=== PATIENT | male | born 1990 | race Caucasian/White ===

== ENCOUNTER 2021-04-02 12:25 | Inpatient (IN) | payer OTHER ==
[2021-04-02 16:12] VITALS: BMI 20.5
[2021-04-02] MEDS ORDERED: ACETAMINOPHEN 325 MG TABLET (FP) PO PRN ×2 (16:28)
[2021-04-02] MEDS ORDERED: IBUPROFEN 400 MG TABLET (FP) PO PRN (16:28)
[2021-04-02] MEDS ORDERED: diazePAM 5 MG TABLET PO PRN (16:28)
[2021-04-02] MEDS ORDERED: MAGNESIUM HYDROX 2400MG/30ML ORAL SUSPENSION 30 ML CUP PO PRN (16:28)
[2021-04-02] MEDS ORDERED: MAGNESIUM CITRATE 300 ML BOTTLE PO PRN (16:28)
[2021-04-02] MEDS ORDERED: ONDANSETRON *ODT* 4 MG TABLET SL PRN (16:28)
[2021-04-02] MEDS ORDERED: NICOTINE 10 MG CARTRIDGE (INHALER) IH PRN (16:28)
[2021-04-02] MEDS ORDERED: MENTHOL/PHENOL 1 EACH UD MM PRN (16:28)
[2021-04-02] MEDS ORDERED: MAG HYDROX/AL HYDROX/SIMETH 30 ML UNIT-DOSE CUP PO PRN (16:28)
[2021-04-02] MEDS ORDERED: diazePAM 5 MG TABLET PO SCH (17:00)
[2021-04-02] MEDS ORDERED: BISMUTH SUBSALICYLATE 524 MG/30 ML PO ONE (17:18)
[2021-04-02] MEDS: LORazepam 2 MG TABLET PO SCH ×2 (18:08→23:04)
[2021-04-02] MEDS: hydrOXYzine PAMOATE 25 MG CAPSULE (FP) PO SCH ×2 (18:09→23:05)
[2021-04-02] MEDS: MELATONIN 5 MG TABLETS PO SCH (23:04)
[2021-04-02] MEDS: GABAPENTIN 300 MG CAPSULE PO SCH (23:05)
[2021-04-02] MEDS: THIAMINE HCL 100 MG TABLET (FP) PO SCH (23:05)
[2021-04-03] MEDS: GABAPENTIN 300 MG CAPSULE PO SCH ×3 (05:23→22:06)
[2021-04-03] MEDS: hydrOXYzine PAMOATE 25 MG CAPSULE (FP) PO SCH ×5 (05:23→22:05)
[2021-04-03] MEDS: LORazepam 2 MG TABLET PO SCH ×4 (05:23→22:06)
[2021-04-03] MEDS ORDERED: methaDONE HCL 10 MG TABLET PO ONE (09:13)
[2021-04-03] MEDS ORDERED: methaDONE 80 MG, methaDONE 20 MG PO ONE (09:45)
[2021-04-03] MEDS ORDERED: methaDONE HCL 40 MG DISPERSABLE TABLET ONE (10:02)
[2021-04-03] MEDS ORDERED: methaDONE HCL 10 MG TABLET ONE (10:02)
[2021-04-03] MEDS: PRENATAL VITAMINS W/ FOLIC ACID TABLET (FP) PO SCH (10:10)
[2021-04-03 11:07] LABS: ALBUMIN 2.9 g/dl (3.4-5.0); BLOOD UREA NITROGEN 6.8 mg/dL (7-18); CALCIUM 8.6 mg/dL (8.5-10.1)
[2021-04-03 11:10] LABS: CREATININE 0.9 mg/dL (0.55-1.3)
[2021-04-03 11:11] LABS: BILIRUBIN,TOTAL 0.5 mg/dL (0.2-1)
[2021-04-03 11:12] LABS: HEMATOCRIT 40.1 % (35.4-49); MCH 31.7 pg (25.7-33.7); MEAN CELL VOLUME 90.5 fl (80-96); MEAN PLT VOLUME 10.6 fl (7.5-11.1); PLATELET COUNT 166 10^3/uL (134-434); RBC 4.42 M/mm3 (4.00-5.60); RDW 13.3 % (11.9-15.9); TOT PROT 6.6 g/dl (6.4-8.2); WHITE BLOOD COUNT 8.4 K/mm3 (4.0-10.0)
[2021-04-03] MEDS: LORazepam 1 MG TABLET PO PRN (12:51)
[2021-04-03] MEDS: BISMUTH SUBSALICYLATE 524 MG/30 ML PO PRN ×3 (14:09→22:10)
[2021-04-03] MEDS ORDERED: POTASSIUM CHLORIDE ORAL LIQUID 20 MEQ/15 ML PO ONE (14:28)
[2021-04-03 17:03] LABS: URINE APPEARANCE CLEAR; URINE BILIRUBIN NEGATIVE (NEGATIVE); URINE COLOR YELLOW; URINE GLUCOSE (UA) NEGATIVE (NEGATIVE); URINE KETONE NEGATIVE (NEGATIVE); URINE LEUK ESTERASE NEGATIVE (NEGATIVE); URINE NITRITE NEGATIVE (NEGATIVE); URINE PROTEIN NEGATIVE (NEGATIVE)
[2021-04-03] MEDS: METHOCARBAMOL 500 MG TABLET PO PRN (18:03)
[2021-04-03] MEDS: POTASSIUM CHLORIDE ORAL LIQUID 20 MEQ/15 ML PO SCH (22:05)
[2021-04-03] MEDS: MELATONIN 5 MG TABLETS PO SCH (22:05)
[2021-04-03] MEDS: THIAMINE HCL 100 MG TABLET (FP) PO SCH (22:06)
[2021-04-04] MEDS ORDERED: methaDONE HCL 10 MG TABLET ONE (04:18)
[2021-04-04] MEDS ORDERED: methaDONE HCL 40 MG DISPERSABLE TABLET ONE (04:19)
[2021-04-04] MEDS: LORazepam 1 MG TABLET PO SCH ×4 (04:21→22:02)
[2021-04-04] MEDS: BISMUTH SUBSALICYLATE 524 MG/30 ML PO PRN ×5 (04:26→22:02)
[2021-04-04] MEDS: hydrOXYzine PAMOATE 25 MG CAPSULE (FP) PO SCH ×5 (05:02→22:01)
[2021-04-04] MEDS: GABAPENTIN 300 MG CAPSULE PO SCH ×3 (05:02→22:01)
[2021-04-04] MEDS: methaDONE 80 MG, methaDONE 20 MG PO SCH (05:02)
[2021-04-04] MEDS ORDERED: methaDONE HCL 10 MG TABLET PO SCH (06:00)
[2021-04-04] MEDS ORDERED: diazePAM 5 MG TABLET PO SCH (06:00)
[2021-04-04] MEDS: PRENATAL VITAMINS W/ FOLIC ACID TABLET (FP) PO SCH (10:40)
[2021-04-04] MEDS: POTASSIUM CHLORIDE ORAL LIQUID 20 MEQ/15 ML PO SCH ×2 (10:40→22:00)
[2021-04-04] MEDS: NICOTINE POLACRILEX 2 MG GUM BUC PRN ×2 (12:38→22:11)
[2021-04-04] MEDS: LORazepam 1 MG TABLET PO PRN (13:31)
[2021-04-04] MEDS: MELATONIN 5 MG TABLETS PO SCH (22:01)
[2021-04-04] MEDS: THIAMINE HCL 100 MG TABLET (FP) PO SCH (22:01)
[2021-04-05] MEDS ORDERED: LORazepam 0.5 MG TABLET PO PRN
[2021-04-05] MEDS ORDERED: methaDONE HCL 40 MG DISPERSABLE TABLET ONE (04:41)
[2021-04-05] MEDS ORDERED: methaDONE HCL 10 MG TABLET ONE (04:41)
[2021-04-05] MEDS: GABAPENTIN 300 MG CAPSULE PO SCH ×3 (05:43→22:04)
[2021-04-05] MEDS: LORazepam 0.5 MG TABLET PO SCH ×4 (05:44→22:03)
[2021-04-05] MEDS: methaDONE 80 MG, methaDONE 20 MG PO SCH (05:45)
[2021-04-05] MEDS ORDERED: diazePAM 5 MG TABLET PO SCH (06:00)
[2021-04-05] MEDS: hydrOXYzine PAMOATE 25 MG CAPSULE (FP) PO SCH ×6 (07:08→22:04)
[2021-04-05] MEDS: NICOTINE POLACRILEX 2 MG GUM BUC PRN ×3 (09:30→22:07)
[2021-04-05] MEDS: PRENATAL VITAMINS W/ FOLIC ACID TABLET (FP) PO SCH (10:35)
[2021-04-05] MEDS: THIAMINE HCL 100 MG TABLET (FP) PO SCH (22:04)
[2021-04-05] MEDS: MELATONIN 5 MG TABLETS PO SCH (22:05)
[2021-04-06] MEDS ORDERED: methaDONE HCL 10 MG TABLET ONE (04:22)
[2021-04-06] MEDS ORDERED: methaDONE HCL 40 MG DISPERSABLE TABLET ONE (04:22)
[2021-04-06] MEDS ORDERED: LORazepam 0.5 MG TABLET PO ONE (05:00)
[2021-04-06] MEDS: GABAPENTIN 300 MG CAPSULE PO SCH (05:33)
[2021-04-06] MEDS: methaDONE 80 MG, methaDONE 20 MG PO SCH (05:33)
[2021-04-06] MEDS ORDERED: diazePAM 5 MG TABLET PO ONE (06:00)
[2021-04-06] MEDS: METHOCARBAMOL 500 MG TABLET PO PRN (06:14)
[2021-04-06] MEDS: NICOTINE POLACRILEX 2 MG GUM BUC PRN (06:15)
[2021-04-06] MEDS: hydrOXYzine PAMOATE 25 MG CAPSULE (FP) PO SCH ×2 (07:26→09:35)
[2021-04-06] MEDS: PRENATAL VITAMINS W/ FOLIC ACID TABLET (FP) PO SCH (09:35)
[2021-04-06 09:54] VITALS: BP 118/79; PULSE 109; TEMP 96.6
== END 2021-04-06 09:46 | disposition home or self-care (01) | DRG 773 ==
LOC: YASAS 12:25 → Y3N 16:14
PROVIDERS: ADMIT Allergy & Immunology; ATTEND Allergy & Immunology
PROC: HZ2ZZZZ Detoxification Services for Substance Abuse Treatment (ICD-10-PCS; principal; 2021-04-02)
DX: F13.230 Sedative, hypnotic or anxiolytic dependence with withdrawal, uncomplicated (principal); F11.20 Opioid dependence, uncomplicated; F12.10 Cannabis abuse, uncomplicated; F17.210 Nicotine dependence, cigarettes, uncomplicated; F19.24 Other psychoactive substance dependence with psychoactive substance-induced mood disorder; F32.9 Major depressive disorder, single episode, unspecified; E88.09 Other disorders of plasma-protein metabolism, not elsewhere classified; E87.6 Hypokalemia; G40.509 Epileptic seizures related to external causes, not intractable, without status epilepticus; Z56.0 Unemployment, unspecified; Z59.00 Homelessness unspecified; Z88.8 Allergy status to other drugs, medicaments and biological substances
CPT/HCPCS: 36415; 80053; 81003; 84132; 85027; 86780; C9803; U0003; U0005

== ENCOUNTER 2023-11-08 11:38 | Inpatient (IN) | payer OTHER ==
[2023-11-08 12:18] VITALS: BMI 26.4
[2023-11-08] MEDS ORDERED: DICYCLOMINE HCL 10 MG CAPSULE PO PRN (12:50)
[2023-11-08] MEDS ORDERED: BENZOCAINE/MENTHOL (CHLORASEPTIC ) LOZENGE MM PRN (12:50)
[2023-11-08] MEDS ORDERED: MAG HYDROX/AL HYDROX/SIMETH 30 ML UNIT-DOSE CUP PO PRN (12:50)
[2023-11-08] MEDS ORDERED: LOPERAMIDE HCL 2 MG CAPSULE PO PRN (12:50)
[2023-11-08] MEDS ORDERED: guaiFENesin 600 MG TABLET.ER (FP) PO PRN (12:50)
[2023-11-08] MEDS ORDERED: IBUPROFEN 600 MG TABLET (FP) PO PRN (12:50)
[2023-11-08] MEDS ORDERED: NALOXONE HCL 0.4 MG/ML VIAL IM PRN (12:50)
[2023-11-08] MEDS ORDERED: BENZONATATE 200 MG CAPSULE PO PRN (12:50)
[2023-11-08] MEDS ORDERED: POLYETHYLENE GLYCOL (HEALTHYLAX) 3350 17 GM PACKET PO PRN (12:50)
[2023-11-08] MEDS ORDERED: IBUPROFEN 400 MG TABLET (FP) PO PRN (12:50)
[2023-11-08] MEDS ORDERED: ONDANSETRON *ODT* 4 MG TABLET SL PRN (12:50)
[2023-11-08] MEDS ORDERED: MAGNESIUM HYDROX 2400MG/30ML ORAL SUSPENSION 30 ML CUP PO PRN (12:50)
[2023-11-08] MEDS ORDERED: BISMUTH SUBSALICYLATE 262 MG/15 ML BTL PO PRN (12:50)
[2023-11-08] MEDS ORDERED: NALOXONE HCL (KLOXXADO) 8 MG SPRAY NS PRN (12:50)
[2023-11-08] MEDS ORDERED: GABAPENTIN 100 MG CAPSULE ONE (13:38)
[2023-11-08] MEDS: GABAPENTIN 300 MG CAPSULE PO SCH (13:41)
[2023-11-08] MEDS: PATIENT'S OWN MEDICATION (NON-FORMULARY) (Sofosbuvir/Velpatasvir [Sofosbuvir-Velpatasvir 4 PO SCH (14:48)
[2023-11-08] MEDS: chlordiazePOXIDE HCL 25 MG CAPSULE PO PRN (14:51)
[2023-11-08] MEDS: chlordiazePOXIDE HCL 25 MG CAPSULE PO SCH (17:15)
[2023-11-08] MEDS: MELATONIN 5 MG TABLETS PO SCH (22:18)
[2023-11-08] MEDS: THIAMINE 100 MG TABLET PO SCH (22:18)
[2023-11-08] MEDS: ACETAMINOPHEN 325 MG TABLET (FP) PO PRN (22:18)
[2023-11-09] MEDS: METHOCARBAMOL 500 MG TABLET PO PRN (05:37)
[2023-11-09 08:45] VITALS: RESP 18
[2023-11-09] MEDS ORDERED: methaDONE HCL 10 MG TABLET PO SCH (09:00)
[2023-11-09] MEDS: PRENATAL VITAMINS W/ FOLIC ACID TABLET (FP) PO SCH (09:34)
[2023-11-09] MEDS: NICOTINE 14 MG/24 HOURS TOPICAL PATCH TD SCH (09:34)
[2023-11-09 10:16] LABS: CHLORIDE 105 mmol/L (98-107); POTASSIUM 4.4 mmol/L (3.5-5.1); SODIUM 140 mmol/L (136-145)
[2023-11-09 10:20] LABS: HEMATOCRIT 37.7 % (35.4-49); HEMOGLOBIN 13.3 GM/dL (11.7-16.9); MCH 32.8 pg (25.7-33.7); MCHC 35.4 g/dl (32.0-35.9); MEAN CELL VOLUME 92.7 fl (80-96); MEAN PLT VOLUME 10.3 fl (7.5-11.1); PLATELET COUNT 152 10^3/uL (134-434); RBC 4.07 M/mm3 (4.00-5.60); RDW 12.7 % (11.9-15.9); WHITE BLOOD COUNT 4.6 K/mm3 (4.0-10.0)
[2023-11-09 10:42] LABS: CALCIUM 8.5 mg/dL (8.5-10.1)
[2023-11-09 10:43] LABS: ALBUMIN 3.2 g/dl (3.4-5.0); ANION GAP 3 mmol/L (4-13); BLOOD UREA NITROGEN 11.1 mg/dL (7-18); CO2 32 mmol/L (21-32); GLUCOSE,RANDOM 87 mg/dL (74-106)
[2023-11-09 10:44] LABS: SGOT/AST 22 U/L (15-37)
[2023-11-09 10:45] LABS: BILIRUBIN,TOTAL 0.6 mg/dL (0.2-1); CREATININE 0.9 mg/dL (0.55-1.3); TOT PROT 6.6 g/dl (6.4-8.2)
[2023-11-09 10:46] LABS: ALK PHOS 57 U/L (45-117); SGPT/ALT 21 U/L (13-61)
[2023-11-09 17:33] VITALS: BP 147/95; PULSE 83; TEMP 97.3
[2023-11-09] MEDS: hydrOXYzine PAMOATE 25 MG CAPSULE (FP) PO PRN (19:26)
[2023-11-10] MEDS ORDERED: chlordiazePOXIDE HCL 25 MG CAPSULE PO SCH (05:00)
[2023-11-11] MEDS ORDERED: chlordiazePOXIDE HCL 10 MG CAPSULE PO PRN
[2023-11-11] MEDS ORDERED: chlordiazePOXIDE HCL 10 MG CAPSULE PO SCH (05:00)
[2023-11-12] MEDS ORDERED: chlordiazePOXIDE HCL 10 MG CAPSULE PO SCH (05:00)
[2023-11-13] MEDS ORDERED: chlordiazePOXIDE HCL 10 MG CAPSULE PO ONE (05:00)
== END 2023-11-09 20:48 | disposition left against medical advice (07) | DRG 770 ==
LOC: YASAS 11:38 → Y6N 13:37
PROVIDERS: ADMIT Allergy & Immunology; ATTEND Surgery
PROC: HZ2ZZZZ Detoxification Services for Substance Abuse Treatment (ICD-10-PCS; principal; 2023-11-08)
DX: F10.230 Alcohol dependence with withdrawal, uncomplicated (principal); F12.20 Cannabis dependence, uncomplicated; F11.20 Opioid dependence, uncomplicated; F17.210 Nicotine dependence, cigarettes, uncomplicated; F19.282 Other psychoactive substance dependence with psychoactive substance-induced sleep disorder; F19.280 Other psychoactive substance dependence with psychoactive substance-induced anxiety disorder; F19.24 Other psychoactive substance dependence with psychoactive substance-induced mood disorder; F41.9 Anxiety disorder, unspecified; F43.10 Post-traumatic stress disorder, unspecified; B18.2 Chronic viral hepatitis C
CPT/HCPCS: 36415; 80053; 80305; 80307; 82140; 85027; 86780; 93005; 93010

== ENCOUNTER 2023-11-15 19:58 | Inpatient (IN) | payer OTHER ==
[2023-11-15 20:30] VITALS: BMI 27.7
[2023-11-15] MEDS ORDERED: IBUPROFEN 400 MG TABLET (FP) PO PRN (20:53)
[2023-11-15] MEDS ORDERED: BISMUTH SUBSALICYLATE 524 MG/30 ML PO PRN (20:53)
[2023-11-15] MEDS ORDERED: ONDANSETRON *ODT* 4 MG TABLET SL PRN (20:53)
[2023-11-15] MEDS ORDERED: LOPERAMIDE HCL 2 MG CAPSULE PO PRN (20:53)
[2023-11-15] MEDS ORDERED: DICYCLOMINE HCL 10 MG CAPSULE PO PRN (20:53)
[2023-11-15] MEDS ORDERED: NALOXONE HCL (KLOXXADO) 8 MG SPRAY NS PRN (20:53)
[2023-11-15] MEDS ORDERED: guaiFENesin 600 MG TABLET.ER (FP) PO PRN (20:53)
[2023-11-15] MEDS ORDERED: BENZOCAINE/MENTHOL (CHLORASEPTIC ) LOZENGE MM PRN (20:53)
[2023-11-15] MEDS ORDERED: POLYETHYLENE GLYCOL (HEALTHYLAX) 3350 17 GM PACKET PO PRN (20:53)
[2023-11-15] MEDS ORDERED: BENZONATATE 200 MG CAPSULE PO PRN (20:53)
[2023-11-15] MEDS ORDERED: MAGNESIUM HYDROX 2400MG/30ML ORAL SUSPENSION 30 ML CUP PO PRN (20:53)
[2023-11-15] MEDS ORDERED: hydrOXYzine PAMOATE 25 MG CAPSULE (FP) PO PRN (20:53)
[2023-11-15] MEDS ORDERED: MAG HYDROX/AL HYDROX/SIMETH 30 ML UNIT-DOSE CUP PO PRN (20:53)
[2023-11-15] MEDS ORDERED: ACETAMINOPHEN 325 MG TABLET (FP) PO PRN (20:53)
[2023-11-15] MEDS ORDERED: NALOXONE HCL 0.4 MG/ML VIAL IM PRN (20:53)
[2023-11-15] MEDS: MELATONIN 5 MG TABLETS PO SCH (21:54)
[2023-11-15] MEDS: THIAMINE 100 MG TABLET PO SCH (21:54)
[2023-11-16] MEDS ORDERED: methaDONE HCL 10 MG TABLET PO SCH ×2 (08:45)
[2023-11-16] MEDS: chlordiazePOXIDE HCL 25 MG CAPSULE PO ONE (09:35)
[2023-11-16] MEDS: chlordiazePOXIDE HCL 25 MG CAPSULE PO SCH (10:09)
[2023-11-16] MEDS: PRENATAL VITAMINS W/ FOLIC ACID TABLET (FP) PO SCH (10:10)
[2023-11-16] MEDS: NICOTINE 21 MG/24 HOURS TOPICAL PATCH TD SCH (10:10)
[2023-11-16 11:35] LABS: BASO % 0.5 % (0-2.0); EOS % 0.5 % (0-4.5); HEMATOCRIT 36.6 % (35.4-49); HEMOGLOBIN 12.8 GM/dL (11.7-16.9); LYMPH % 20.3 % (8-40); MCH 32.7 pg (25.7-33.7); MEAN CELL VOLUME 93.2 fl (80-96); MEAN PLT VOLUME 10.5 fl (7.5-11.1); NEUT % 67.7 % (42.8-82.8); PLATELET COUNT 139 10^3/uL (134-434); RBC 3.92 M/mm3 (4.00-5.60); RDW 13.4 % (11.9-15.9); WHITE BLOOD COUNT 7.7 K/mm3 (4.0-10.0)
[2023-11-16 11:37] LABS: POTASSIUM 3.8 mmol/L (3.5-5.1)
[2023-11-16 11:39] LABS: CALCIUM 8.5 mg/dL (8.5-10.1)
[2023-11-16 11:41] LABS: ALBUMIN 3.2 g/dl (3.4-5.0); BLOOD UREA NITROGEN 7.7 mg/dL (7-18)
[2023-11-16 11:45] LABS: BILIRUBIN,TOTAL 0.7 mg/dL (0.2-1); TOT PROT 6.7 g/dl (6.4-8.2)
[2023-11-16] MEDS: IBUPROFEN 600 MG TABLET (FP) PO PRN (13:21)
[2023-11-16] MEDS: METHOCARBAMOL 500 MG TABLET PO PRN (13:22)
[2023-11-16] MEDS: chlordiazePOXIDE HCL 25 MG CAPSULE PO PRN (13:22)
[2023-11-16] MEDS: PATIENT'S OWN MEDICATION (NON-FORMULARY) (Sofosbuvir/Velpatasvir [Epclusa 400 Mg-100 Mg Ta PO SCH (14:05)
[2023-11-16] MEDS: NICOTINE POLACRILEX 2 MG LOZENGE BC PRN (14:09)
[2023-11-16] MEDS: GABAPENTIN 100 MG CAPSULE PO SCH (22:04)
[2023-11-17 09:02] VITALS: RESP 18
[2023-11-17] MEDS: SERTRALINE HCL 50 MG TABLET (FP) PO SCH (10:14)
[2023-11-17 13:02] VITALS: BP 151/92; PULSE 61; TEMP 97.8
[2023-11-18] MEDS ORDERED: chlordiazePOXIDE HCL 25 MG CAPSULE PO SCH (05:00)
[2023-11-19] MEDS ORDERED: chlordiazePOXIDE HCL 10 MG CAPSULE PO PRN
[2023-11-19] MEDS ORDERED: chlordiazePOXIDE HCL 10 MG CAPSULE PO SCH (05:00)
[2023-11-20] MEDS ORDERED: chlordiazePOXIDE HCL 10 MG CAPSULE PO SCH (05:00)
[2023-11-21] MEDS ORDERED: chlordiazePOXIDE HCL 10 MG CAPSULE PO ONE (05:00)
== END 2023-11-17 15:38 | disposition left against medical advice (07) | DRG 770 ==
LOC: YASAS 19:58 → Y3N 21:14 → UNDOADMIN 21:14 → Y3N 11-16 08:36
PROVIDERS: ADMIT Allergy & Immunology; ATTEND Surgery
PROC: HZ2ZZZZ Detoxification Services for Substance Abuse Treatment (ICD-10-PCS; principal; 2023-11-16)
DX: F10.230 Alcohol dependence with withdrawal, uncomplicated (principal); F11.20 Opioid dependence, uncomplicated; F19.282 Other psychoactive substance dependence with psychoactive substance-induced sleep disorder; F19.24 Other psychoactive substance dependence with psychoactive substance-induced mood disorder; F43.10 Post-traumatic stress disorder, unspecified; F41.9 Anxiety disorder, unspecified; B18.2 Chronic viral hepatitis C; Z56.0 Unemployment, unspecified; Z59.01 Sheltered homelessness; Z88.8 Allergy status to other drugs, medicaments and biological substances
CPT/HCPCS: 36415; 80053; 80305; 85025